=== PATIENT | female | born 1990 | race Two or more races ===

== ENCOUNTER 2021-12-04 20:58 | Emergency (ER) | payer OTHER ==
[~2021-12-04] VITALS: Ht 152.4 cm; Wt 56.7 kg
[2021-12-04 21:00] VITALS: BP 128/77
--- NOTE | 2021-12-04 21:19 | NUR ---
Patient discharged to home in stable condition. Written and verbal after care instructions given. Patient verbalizes understanding of instruction.
[2021-12-06] MEDS ORDERED: ACETAMINOPHEN 325 MG TABLET ONE (16:39)
== END 2021-12-04 22:03 | disposition home or self-care (01) ==
LOC: ER 21:20
DX: S01.21XA Laceration without foreign body of nose, initial encounter (principal); W22.01XA Walked into wall, initial encounter; Y93.02 Activity, running; Y92.89 Other specified places as the place of occurrence of the external cause; Y99.8 Other external cause status

== ENCOUNTER 2021-12-06 15:37 | Emergency (ER) | payer OTHER ==
[~2021-12-06] VITALS: Ht 152.4 cm; Wt 56.7 kg
[2021-12-06 15:46] VITALS: BP 128/80
--- NOTE | 2021-12-06 15:46 | NUR ---
BIBCOWORKER C/O HEADACHE, REDNESS AND SWELLING ON BOTH EYELIDS, SWELLING ON BRIDGE OF NOSE, S/P WALKING INTO A WALL LAST THURSDAY, -LOC, DIFFICULTY BREATHING ON THE L SIDE OF THE NOSTRIL.
[2021-12-06] MEDS ORDERED: ACETAMINOPHEN 325 MG TABLET PO ONE (16:30)
[2021-12-06] MEDS ORDERED: CEPH500C2 PO (17:34)
--- NOTE | 2021-12-06 17:56 | NUR ---
Patient discharged to home in stable condition. Written and verbal after care instructions given. Patient verbalizes understanding of instruction.
[2021-12-06] MEDS ORDERED: CEPHALEXIN MONOHYDRATE 500 MG CAPSULE PO ONE (18:00)
== END 2021-12-06 17:57 | disposition home or self-care (01) ==
LOC: ER 16:47
DX: S02.2XXD Fracture of nasal bones, subsequent encounter for fracture with routine healing (principal); S01.21XD Laceration without foreign body of nose, subsequent encounter; X58.XXXD Exposure to other specified factors, subsequent encounter
CPT/HCPCS: 70486-TC; 84703-TC